=== PATIENT | female | born 1940 | race Caucasian/White ===

== ENCOUNTER → 2017-04-18 | Outpatient (REF) | payer MEDICARE, BC ==
[2017-04-18 19:07] LABS: BLOOD UREA NITROGEN 19 MG/DL (7-18); CREATININE FOR GFR 0.91 MG/DL (0.55-1.02); GLOMERULAR FILTRATION RATE > 60.0 (>39)
== END ==
LOC: M LAB REF 17:10
PROVIDERS: ATTEND Orthopaedic Surgery
DX: M17.11 Unilateral primary osteoarthritis, right knee (principal)

== ENCOUNTER → 2021-03-25 | Outpatient (REF) | payer MEDICARE, BC | LOC: M WUC 19:31 | PROVIDERS: ATTEND Nurse Practitioner Family | DX: N39.0 Urinary tract infection, site not specified (principal) ==

== ENCOUNTER → 2021-04-07 | Outpatient (REF) | payer MEDICARE, BC ==
[2021-04-07 14:27] LABS: GC DNA AMPLIFICATION NEGATIVE (NEGATIVE)
== END ==
LOC: M LAB REF 11:20
PROVIDERS: ATTEND Nurse Practitioner Family
DX: N39.0 Urinary tract infection, site not specified (principal); Z11.3 Encounter for screening for infections with a predominantly sexual mode of transmission

== ENCOUNTER → 2022-01-29 | Outpatient (CLI) | payer OTHER | LOC: M WUC 14:29 | PROVIDERS: ATTEND Registered Nurse | DX: M19.041 Primary osteoarthritis, right hand (principal); M19.042 Primary osteoarthritis, left hand; S02.2XXA Fracture of nasal bones, initial encounter for closed fracture; W18.30XA Fall on same level, unspecified, initial encounter; Y92.89 Other specified places as the place of occurrence of the external cause ==

== ENCOUNTER → 2022-04-17 | Outpatient (REF) | payer OTHER | LOC: M LAB REF 12:38 | PROVIDERS: ATTEND Student in an Organized Health Care Education/Training Program | DX: R30.0 Dysuria (principal) ==

== ENCOUNTER → 2022-06-19 | Outpatient (REF) | payer OTHER | LOC: M LAB REF 20:03 | PROVIDERS: ATTEND Student in an Organized Health Care Education/Training Program | DX: R30.0 Dysuria (principal) ==

== ENCOUNTER → 2022-06-30 | Outpatient (REF) | payer OTHER | LOC: M WUC 18:05 | PROVIDERS: ATTEND Physician Assistant | DX: N39.0 Urinary tract infection, site not specified (principal) ==

== ENCOUNTER → 2024-10-05 | Outpatient (REF) | payer OTHER | LOC: M WUC 20:25 | PROVIDERS: ATTEND Nurse Practitioner Family | DX: R30.0 Dysuria (principal) ==

== ENCOUNTER → 2025-04-13 | Outpatient (REF) | payer OTHER ==
[~2025-04-13] MED LIST: ELIQ5TAB PO; HYDR-3490 PO; METO1TAB87 PO
== END ==
LOC: M LAB REF 13:14
PROVIDERS: ATTEND Physician Assistant
DX: R30.0 Dysuria (principal)

== ENCOUNTER → 2025-04-21 | Outpatient (REF) | payer OTHER | LOC: M LAB REF 14:26 | PROVIDERS: ATTEND Physician Assistant Medical | DX: N39.0 Urinary tract infection, site not specified (principal) ==

== ENCOUNTER 2025-06-03 08:38 | Observation (INO) | payer OTHER ==
[~2025-06-03] VITALS: Ht 165.1 cm; Wt 67.4 kg
[2025-06-03] MEDS ORDERED: SERT25TA21 PO (08:47)
[2025-06-03] MEDS ORDERED: OXYC1TAB23 PO (08:47)
[2025-06-03] MEDS ORDERED: TRAM25TA2 (08:47)
[2025-06-03] MEDS: NS (Normal Saline) 0.9% 1,000 ML IV SCH (09:58)
[2025-06-03 10:01] LABS: BASO # 0.0 10^3/uL (0.0-0.2); BASO % 0.3 % (0.0-1.0); EOS # 0.0 10^3/uL (0.0-0.5); EOS % 0.1 % (0.0-3.0); LYMPH # 1.1 10^3/uL (1.5-5.0); LYMPH % 11.0 % (24.0-44.0); MONO # 1.2 10^3/uL (0.0-0.8); MONO % 11.9 % (2.0-8.0); NEUTROPHILS # 7.4 10^3/uL (1.5-8.5); NEUTROPHILS % 75.8 % (36.0-66.0); PLATELET COUNT, AUTOMATED 273 10^3/uL (150-450)
[2025-06-03 10:34] LABS: ALT/SGPT 15 U/L (7.0-40); AST/SGOT 23 U/L (<34); CALCIUM LEVEL 9.1 MG/DL (8.3-10.6); CARBON DIOXIDE LEVEL 29 MMOL/L (20-31); CHLORIDE LEVEL 88 MMOL/L (98-107); CREATININE FOR GFR 0.41 MG/DL (0.55-1.30); GLOMERULAR FILTRATION RATE > 90.0 (>32); POTASSIUM SERUM 3.7 MMOL/L (3.5-5.1); SODIUM LEVEL 128 MMOL/L (136-145)
[2025-06-03] MEDS ORDERED: METO25TA4 PO (12:29)
[2025-06-03] MEDS ORDERED: ELIQ5TAB PO (12:29)
[2025-06-03] MEDS ORDERED: HOME MED LIST COMPLETE! XX SCH ×2 (12:30)
[2025-06-03] MEDS: GASTROGRAFIN SOLUTION 30ML PO SCH (18:00)
[2025-06-03] MEDS ORDERED: ISOVUE-370 76% 100 ML VIAL As Ordered ONE (18:13)
[2025-06-03 22:21] LABS: KETONE, URINE AUTO RFX 1+ mg/dL (NEGATIVE); LEUKOCYTE ESTERASE UR AUTO RFX NEGATIVE (NEGATIVE); MUCUS, URINE RFX SMALL (NEGATIVE); NITRITE, URINE AUTO RFX NEGATIVE (NEGATIVE); RBC, URINE AUTO RFX 9 /HPF (0-3); SQUAM EPITHELIAL CELL UR AURFX 6 /HPF (0-6); WBC, URINE AUTO RFX 2 /HPF (0-3)
[2025-06-04] MEDS ORDERED: MOM 30 ML SUSPENSION UDC PO PRN (00:10)
[2025-06-04 01:08] LABS: SODIUM,RANDOM URINE 95 MMOL/L
[2025-06-04 01:14] LABS: AMPHETAMINES LEVEL URINE NEGATIVE (NEGATIVE); BARBITURATES URINE NEGATIVE (NEGATIVE); BENZODIAZEPINES URINE NEGATIVE (NEGATIVE); COCAINE METABOLITE URINE NEGATIVE (NEGATIVE)
[2025-06-04 01:15] LABS: CANNABINOIDS URINE NEGATIVE (NEGATIVE); METHADONE URINE NEGATIVE (NEGATIVE); OPIATES URINE NEGATIVE (NEGATIVE); PHENCYCLIDINE URINE NEGATIVE (NEGATIVE)
[2025-06-04 03:22] VITALS: BP 153/76; TEMP 97.5; O2SAT 98
[2025-06-04] MEDS: METOPROLOL TART 12.5 MG PER 1/2 TAB PO SCH (06:39)
[2025-06-04 07:08] LABS: CALCIUM LEVEL 8.8 MG/DL (8.3-10.6); CARBON DIOXIDE LEVEL 31 MMOL/L (20-31); CHLORIDE LEVEL 89 MMOL/L (98-107); CREATININE FOR GFR 0.38 MG/DL (0.55-1.30); GLOMERULAR FILTRATION RATE > 90.0 (>32); POTASSIUM SERUM 3.1 MMOL/L (3.5-5.1); SODIUM LEVEL 131 MMOL/L (136-145)
[2025-06-04 07:11] LABS: OSMOLALITY SERUM 272 MOSM/KG (280-301)
[2025-06-04 07:20] LABS: CORTISOL AM 29.5 UG/DL (4.3-22.4)
[2025-06-04 08:06] LABS: MAGNESIUM LEVEL 1.8 MG/DL (1.8-2.4)
[2025-06-04 08:12] VITALS: BP 155/73; TEMP 97.9; O2SAT 97
[2025-06-04] MEDS ORDERED: METOPROLOL TART 12.5 MG PER 1/2 TAB PO SCH (09:00)
[2025-06-04] MEDS ORDERED: ENOXAPARIN 40 MG/0.4 ML SYRINGE (J1650 PER 10MG) SC SCH (09:00)
[2025-06-04] MEDS: POTASSIUM CHLORIDE 10MEQ SR TABLET PO ONE (09:11)
[2025-06-04] MEDS: KCL 10MEQ/100ML SWI (KRUN) 10 MEQ in IV 1 EA IV SCH (09:11)
[2025-06-04] MEDS: APIXABAN 5 MG TAB PO SCH (09:11)
[2025-06-04] MEDS: DOCUSATE SODIUM 100 MG CAPSULE PO SCH (09:12)
[2025-06-04] MEDS: LIDOCAINE 5% PATCH TD SCH (09:12)
[2025-06-04 12:00] VITALS: BP 174/76; TEMP 98.1; O2SAT 98
[2025-06-04] MEDS: SERTRALINE HCL 25 MG TABLET PO SCH (12:15)
[2025-06-04 20:00] VITALS: BP 170/87; TEMP 97.5; O2SAT 98
[2025-06-04] MEDS: **hydrALAZINE** 10 MG TAB PO SCH (21:16)
[2025-06-05 05:00] VITALS: BP 170/70; TEMP 97.3; O2SAT 97
[2025-06-05] MEDS ORDERED: **hydrALAZINE HCL** 25 MG TAB PO PRN (07:30)
[2025-06-05 07:51] LABS: ALT/SGPT 17 U/L (7.0-40); AST/SGOT 30 U/L (<34); CALCIUM LEVEL 8.9 MG/DL (8.3-10.6); CARBON DIOXIDE LEVEL 26 MMOL/L (20-31); CHLORIDE LEVEL 92 MMOL/L (98-107); CREATININE FOR GFR 0.37 MG/DL (0.55-1.30); GLOMERULAR FILTRATION RATE > 90.0 (>32); MAGNESIUM LEVEL 1.8 MG/DL (1.8-2.4); POTASSIUM SERUM 4.0 MMOL/L (3.5-5.1); SODIUM LEVEL 132 MMOL/L (136-145)
[2025-06-05] MEDS: METOPROLOL TART 25 MG TABLET PO SCH (09:24)
[2025-06-05 11:56] VITALS: BP 140/73; TEMP 98.4; O2SAT 97
[2025-06-05] MEDS ORDERED: **hydrALAZINE** 10 MG TAB PO SCH (14:00)
[2025-06-05 19:45] VITALS: BP 162/64; TEMP 97.3; O2SAT 98
[2025-06-05 19:58] VITALS: BP 94/53; TEMP 97.7; O2SAT 98
[2025-06-05] MEDS: NS (Normal Saline) 0.9% 1,000 ML IV ONE (20:21)
[2025-06-05 20:37] LABS: KETONE, URINE MANUAL REFLEX 3+ mg/dL (NEGATIVE); NITRITE, URINE MANUAL RFX NEGATIVE (NEGATIVE); PROTEIN, URINE MANUAL REFLEX 3+ mg/dL (NEGATIVE); SP GRAVITY,URINE MANUAL REFLEX 1.020 (1.002-1.035); UROBILINOGEN, UA MANUAL REFLEX NORMAL (NORMAL)
[2025-06-05 20:45] LABS: VENOUS BASE EXCESS 5.6 (-2.0-2.0); VENOUS HCO3 28.9 MMOL/L (23.0-27.0); VENOUS O2 SATURATION 99.4 % (60.0-80.0); VENOUS PARTIAL PRESSURE CO2 37.6 mmHg (38.0-50.0); VENOUS PARTIAL PRESSURE O2 185.1 mmHg (30.0-50.0); VENOUS PH 7.504 UNITS (7.330-7.430); VENOUS STANDARD HCO3 29.6 MMOL/L; VENOUS TOTAL CO2 30.1 MMOL/L (24.0-28.0)
[2025-06-05 20:53] LABS: BASO # 0.0 10^3/uL (0.0-0.2); BASO % 0.2 % (0.0-1.0); EOS # 0.0 10^3/uL (0.0-0.5); EOS % 0.1 % (0.0-3.0); LYMPH # 1.0 10^3/uL (1.5-5.0); LYMPH % 4.9 % (24.0-44.0); MONO # 2.5 10^3/uL (0.0-0.8); MONO % 13.1 % (2.0-8.0); NEUTROPHILS # 15.6 10^3/uL (1.5-8.5); NEUTROPHILS % 81.2 % (36.0-66.0); PLATELET COUNT, AUTOMATED 303 10^3/uL (150-450)
[2025-06-05 20:58] LABS: HYALINE CAST, URINE RFX NONE SEEN /lpf (0-1); RBC, URINE MAN REFLEX TNTC /hpf (0-3); SQUAMOUS EPITHELIAL URINE RFX SMALL AMOUNT /hpf (SMALL AMT)
[2025-06-05 20:59] LABS: MUCUS, URINE REFLEX MOD AMOUNT (NEGATIVE)
[2025-06-05 21:00] LABS: MICROSCOPIC EXAM RFX PERFORMED
[2025-06-05 21:07] LABS: ERYTHROCYTE SEDIMENTATION RATE 30 mm/hr (0-30)
[2025-06-05 21:18] LABS: C REACTIVE PROTEIN QUANTITATIV 4.08 MG/DL (<1.0)
[2025-06-05 21:27] LABS: ALT/SGPT 15.0 U/L (7.0-40); AST/SGOT 23.0 U/L (<34); CALCIUM LEVEL 8.5 MG/DL (8.3-10.6); CARBON DIOXIDE LEVEL 28.0 MMOL/L (20-31); CHLORIDE LEVEL 95.0 MMOL/L (98-107); CREATININE FOR GFR 0.55 MG/DL (0.55-1.30); GLOMERULAR FILTRATION RATE 89.2 (>32); MAGNESIUM LEVEL 1.7 MG/DL (1.8-2.4); PHOSPHORUS LEVEL 2.1 MG/DL (2.4-5.1); POTASSIUM SERUM 3.7 MMOL/L (3.5-5.1); SODIUM LEVEL 132.0 MMOL/L (136-145)
[2025-06-05 21:29] LABS: OSMOLALITY SERUM 281.0 MOSM/KG (280-301)
[2025-06-05] MEDS: LR 1,000 ML IV SCH (21:37)
[2025-06-05 21:38] VITALS: BP 135/70
[2025-06-06] MEDS: LACTULOSE 20 GM/30 ML SYRUP UDC PO SCH (00:09)
[2025-06-06] MEDS: cefTRIAXone SOD 1 GM in DEXTROSE 5% (D5W) ADV/MINI-BAG 50 ML IV SCH (00:09)
[2025-06-06] MEDS: ACETAMINOPHEN 325 MG TAB PO PRN (03:00)
[2025-06-06 04:00] VITALS: BP 144/82; TEMP 97.9; O2SAT 97
[2025-06-06 08:56] LABS: BASO # 0.0 10^3/uL (0.0-0.2); BASO % 0.2 % (0.0-1.0); EOS # 0.0 10^3/uL (0.0-0.5); EOS % 0.1 % (0.0-3.0); LYMPH # 1.1 10^3/uL (1.5-5.0); LYMPH % 6.6 % (24.0-44.0); MONO # 1.7 10^3/uL (0.0-0.8); MONO % 9.6 % (2.0-8.0); NEUTROPHILS # 14.4 10^3/uL (1.5-8.5); NEUTROPHILS % 82.9 % (36.0-66.0); PLATELET COUNT, AUTOMATED 278 10^3/uL (150-450)
[2025-06-06 09:20] LABS: CALCIUM LEVEL 8.2 MG/DL (8.3-10.6); CARBON DIOXIDE LEVEL 27 MMOL/L (20-31); CHLORIDE LEVEL 95 MMOL/L (98-107); CREATININE FOR GFR 0.42 MG/DL (0.55-1.30); GLOMERULAR FILTRATION RATE > 90.0 (>32); MAGNESIUM LEVEL 1.7 MG/DL (1.8-2.4); POTASSIUM SERUM 3.7 MMOL/L (3.5-5.1); SODIUM LEVEL 133 MMOL/L (136-145)
[2025-06-06 12:00] VITALS: BP 138/68; TEMP 97.7; O2SAT 99
[2025-06-06 19:49] VITALS: BP 123/58; TEMP 97.2; O2SAT 97
[2025-06-06] MEDS: RAMELTEON 8 MG TAB PO SCH (20:43)
[2025-06-06] MEDS: DICLOFENAC EPOLAMINE 1.3% PATCH TOP SCH (20:43)
[2025-06-07 04:20] VITALS: BP 117/63; TEMP 97.9; O2SAT 92
[2025-06-07 06:34] LABS: BASO # 0.1 10^3/uL (0.0-0.2); BASO % 0.5 % (0.0-1.0); EOS # 0.1 10^3/uL (0.0-0.5); EOS % 0.6 % (0.0-3.0); LYMPH # 2.0 10^3/uL (1.5-5.0); LYMPH % 16.3 % (24.0-44.0); MONO # 1.3 10^3/uL (0.0-0.8); MONO % 10.7 % (2.0-8.0); NEUTROPHILS # 8.6 10^3/uL (1.5-8.5); NEUTROPHILS % 71.1 % (36.0-66.0); PLATELET COUNT, AUTOMATED 294 10^3/uL (150-450)
[2025-06-07 07:51] LABS: CALCIUM LEVEL 8.1 MG/DL (8.3-10.6); CARBON DIOXIDE LEVEL 27.0 MMOL/L (20-31); CHLORIDE LEVEL 96.0 MMOL/L (98-107); CREATININE FOR GFR 0.54 MG/DL (0.55-1.30); GLOMERULAR FILTRATION RATE 89.6 (>32); MAGNESIUM LEVEL 1.7 MG/DL (1.8-2.4); POTASSIUM SERUM 3.7 MMOL/L (3.5-5.1); SODIUM LEVEL 131.0 MMOL/L (136-145)
[2025-06-07] MEDS ORDERED: LACTULOSE 20 GM/30 ML SYRUP UDC PO PRN (08:00)
[2025-06-07] MEDS: AUGMENTIN 875 MG TAB PO SCH (08:38)
[2025-06-07] MEDS: SENNOSIDES/DOCUSATE SODIUM 8.6 MG/50MG TAB PO SCH (08:39)
[2025-06-07 12:00] VITALS: BP 129/64; TEMP 98.1; O2SAT 97
[2025-06-07 16:37] VITALS: BP 113/58; O2SAT 98
[2025-06-07] MEDS: MAGNESIUM OXIDE 400 MG TAB PO SCH (17:41)
[2025-06-07 19:49] VITALS: BP 113/58; TEMP 97.9
[2025-06-08] MEDS: MAALOX 30 ML SUSP *UDC PO PRN (01:08)
[2025-06-08 04:41] VITALS: BP 132/65; TEMP 97.7; O2SAT 96
[2025-06-08 06:27] LABS: BASO # 0.1 10^3/uL (0.0-0.2); BASO % 0.9 % (0.0-1.0); EOS # 0.1 10^3/uL (0.0-0.5); EOS % 0.9 % (0.0-3.0); LYMPH # 2.2 10^3/uL (1.5-5.0); LYMPH % 17.6 % (24.0-44.0); MONO # 2.1 10^3/uL (0.0-0.8); MONO % 16.2 % (2.0-8.0); NEUTROPHILS # 8.1 10^3/uL (1.5-8.5); NEUTROPHILS % 63.2 % (36.0-66.0); PLATELET COUNT, AUTOMATED 300 10^3/uL (150-450)
[2025-06-08 06:56] LABS: CALCIUM LEVEL 8.8 MG/DL (8.3-10.6); CARBON DIOXIDE LEVEL 29 MMOL/L (20-31); CHLORIDE LEVEL 98 MMOL/L (98-107); CREATININE FOR GFR 0.50 MG/DL (0.55-1.30); GLOMERULAR FILTRATION RATE > 90.0 (>32); MAGNESIUM LEVEL 1.9 MG/DL (1.8-2.4); POTASSIUM SERUM 4.1 MMOL/L (3.5-5.1); SODIUM LEVEL 133 MMOL/L (136-145)
[2025-06-08 12:00] VITALS: BP 109/60; TEMP 97.9; O2SAT 97
[2025-06-08 20:06] VITALS: BP 104/59; TEMP 97; O2SAT 96
[2025-06-08] MEDS ORDERED: ACET32TAB PO (20:14)
[2025-06-08] MEDS ORDERED: METO1TAB87 PO (20:14)
[2025-06-08] MEDS ORDERED: MAGN400T33 PO (20:14)
[2025-06-08] MEDS ORDERED: LEVO1TAB39 PO (20:14)
[2025-06-09 04:00] VITALS: BP 132/74; TEMP 98.2; O2SAT 98
[2025-06-09 06:22] LABS: BASO # 0.1 10^3/uL (0.0-0.2); BASO % 0.7 % (0.0-1.0); EOS # 0.1 10^3/uL (0.0-0.5); EOS % 0.8 % (0.0-3.0); LYMPH # 1.9 10^3/uL (1.5-5.0); LYMPH % 15.9 % (24.0-44.0); MONO # 2.1 10^3/uL (0.0-0.8); MONO % 17.2 % (2.0-8.0); NEUTROPHILS # 7.7 10^3/uL (1.5-8.5); NEUTROPHILS % 64.3 % (36.0-66.0); PLATELET COUNT, AUTOMATED 259 10^3/uL (150-450)
[2025-06-09 06:48] LABS: CALCIUM LEVEL 8.6 MG/DL (8.3-10.6); CARBON DIOXIDE LEVEL 29.0 MMOL/L (20-31); CHLORIDE LEVEL 98.0 MMOL/L (98-107); CREATININE FOR GFR 0.57 MG/DL (0.55-1.30); GLOMERULAR FILTRATION RATE 88.5 (>32); MAGNESIUM LEVEL 2.0 MG/DL (1.8-2.4); POTASSIUM SERUM 4.6 MMOL/L (3.5-5.1); SODIUM LEVEL 137.0 MMOL/L (136-145)
[2025-06-09 09:19] VITALS: BP 122/57
== END 2025-06-09 12:35 | disposition home or self-care (01) ==
LOC: EDBD 08:38 → M ED 09:23 → M ED INP 06-04 00:07 → INTOOBSV 06-04 00:07 → M MSPAV 06-04 03:17
PROVIDERS: ADMIT Student in an Organized Health Care Education/Training Program; ATTEND Internal Medicine
DX: G93.41 Metabolic encephalopathy (principal); N39.0 Urinary tract infection, site not specified; B95.2 Enterococcus as the cause of diseases classified elsewhere; G92.9 Unspecified toxic encephalopathy; T40.2X5A Adverse effect of other opioids, initial encounter; R33.9 Retention of urine, unspecified; E87.1 Hypo-osmolality and hyponatremia; M19.90 Unspecified osteoarthritis, unspecified site; M54.6 Pain in thoracic spine; G89.29 Other chronic pain; R93.2 Abnormal findings on diagnostic imaging of liver and biliary tract; I10 Essential (primary) hypertension; I48.91 Unspecified atrial fibrillation; F32.A Depression, unspecified; Z63.4 Disappearance and death of family member; R44.0 Auditory hallucinations; R44.1 Visual hallucinations; Z88.1 Allergy status to other antibiotic agents; Z79.899 Other long term (current) drug therapy; Z79.01 Long term (current) use of anticoagulants
CPT/HCPCS: 36415; 70450; 72131; 74170; 74181; 80048; 80053; 80076; 80307; 81000; 81001; 81015; 82140; 82533; 82570; 82803; 83605; 83690; 83735; 83880; 83930; 83935; 84100; 84145; 84300; 84443; 85025; 85652; 86140; 87040; 87088; 87186; 93005; 93041; 93306; 96361; 96365; 96366; 96367; 96375; 96376; 97116; 97161; 97530; 99285; G0378; J0696; J2060; Q9963; Q9967